=== PATIENT | male | born 1965 | race Caucasian/White ===

== ENCOUNTER 2019-05-07 16:37 | Emergency (ER) | payer SELFPAY ==
[2019-05-07] MEDS ORDERED: predniSONE 20 MG TAB ONE (18:36)
== END 2019-05-07 18:40 | disposition home or self-care (01) ==
LOC: BURERS 16:37
DX: T78.40XA Allergy, unspecified, initial encounter (principal); I10 Essential (primary) hypertension; F41.9 Anxiety disorder, unspecified; F17.210 Nicotine dependence, cigarettes, uncomplicated; Z79.899 Other long term (current) drug therapy
CPT/HCPCS: 99283; J7512